=== PATIENT | male | born 1965 | race Caucasian/White ===

== ENCOUNTER 2018-02-07 18:43 | Observation (INO) ==
[2018-02-07] MEDS ORDERED: Isovue-370 500 ML INFUS..BTL IV ONE (22:02)
--- NOTE | 2018-02-07 22:10 | Emergency Department Note ---
Disposition Clinical Impression: Current use of anticoagulant therapy, Pneumothorax, right Left leg DVT Qualifiers: Affected thrombotic vein of extremity: unspecified lower extremity distal vein Chronicity: acute Qualified Code(s): I82.4Z2 - Acute embolism and thrombosis of unspecified deep veins of left distal lower extremity Disposition: Admitted As Inpatient Condition: Good Referrals: NONE,PCP [Primary Care Provider] - ESTELA MCKEON [Other] Forms: ED Satisfaction Letter Time of Disposition: 00:58 General Adult HPI - General Chief complaint: ED Extremity Problem,Nontraumatic Stated complaint: +DVT LLE, +Clot L Lung, sob Time Seen by Provider: 02/07/18 21:31 Source: patient Limitations: no limitations Nursing Notes Reviewed: Yes Vital Signs Reviewed: Yes - History of Present Illness HPI Narrative: Mr. Franklin, 52-year-old male, presents from home for evaluation of unilateral left lower extremity swelling and right-sided rib pain worse with breathing. Patient has a history of unprovoked DVT and PE. He is currently on eliquis 10 mg twice a day. He was discharged from [facility] 27 January with a diagnosis of pleurisy. Symptoms that led him to that admission for a three- month history of hemoptysis, general chest pain with inspiration. Inpatient workup included a markedly elevated d-dimer, right-sided PE, left lower extremity DVT. He was managed on Lovenox inpatient and discharged on liquids. Since discharge, his left lower extremity has been markedly swollen in his right -sided pain with inspiration has persisted. His dyspnea has improved. Patient is becoming increasingly concerned as he has had multiple male on the paternal side of his family, been in her 50s, sudden . Suspected to be blood clot related. ROS: Positive: As above Negative: Fever, chills, nausea, vomiting, palpitations, unusual back pain, diaphoresis, abdominal pain, neck pain, headache, trauma, cancer history. Pain Scale: 6 - Related Data Allergies Allergy/AdvReac Type Severity Reaction Status Date / Time No Known Allergies Allergy Verified 02/07/18 19:04 Past Medical History - Past Medical History Medical history: Reports: DVT, pulmonary embolus Psychiatric history: Reports: no psych history - Social History Smoking Status: Current every day smoker Smokeless Tobacco Status: No Alcohol use: Reports: occasionally Drug use: Reports: none Physical Exam - General Limitations: no limitations General appearance: alert Course Course Narrative: EKG dated 02/07/10 at 21:43 interpreted as sinus rhythm with rate of 85. Normal intervals. Normal axis. Nonspecific ST T changes. Her previous EKG for comparison. Bilateral lower extremity ultrasound Doppler shows extensive DVT in the left lower extremity from the popliteal fossa to the groin. No DVT in the right lower extremity. CTA chest shows no PE for renal injury. There is concern for a tiny collection of gas along the major fissure of the right lung concerning for hydropneumothorax versus infection. Patient remains comfortable relaxing in bed. He is are updated on the above. Their agreement to admission for continued evaluation and management. Will begin empiric antibiotics and begin heparin drip. Cardiothoracic surgery consult; I did not call cardiothoracic surgery as there is no emergent intervention required this evening given the size of this incidental finding, patient's only relevant symptom to be mild right-sided rib pain, and the patient 's stable normal vital signs. I involve the admitting hospitalist, Dr. Kyle, who agrees to accept the patient for continued evaluation and management. 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 Nodular subpleural thickening with architectural distortion along the right lower lung is favored to represent areas of round atelectasis. Comparison with prior imaging would be helpful otherwise recommend three-month follow-up CT. Tiny right pleural effusion with small gas collection along the major fissure -indeterminate for loculated hydropneumothorax versus infectious focus. Diffuse airway inflammation. The Suspect subtle centrilobular ground-glass opacities, upper lung predominant which in a smoker could indicate underlying respiratory bronchiolitis. Subtle emphysema at the lung apices. D/ / Manoj Vazquez / Manoj Vazquez Interpreting Provider: Manoj Vazquez Vital Signs Temperature 98.2 F 02/07/18 19:04 Pulse Rate 106 02/07/18 19:04 Respiratory Rate 20 02/07/18 19:04 Blood Pressure 129/86 02/07/18 19:04 O2 Sat by Pulse Oximetry 99 02/07/18 19:04 Temperature 98.2 F 02/07/18 19:04 Pulse Rate 106 02/07/18 19:04 Respiratory Rate 20 02/07/18 19:04 Blood Pressure 129/86 02/07/18 19:04 O2 Sat by Pulse Oximetry 99 02/07/18 19:04 Oxygen Delivery Oxygen Delivery Room Air Medical Decision Making - Lab Data Result diagrams: 02/07/18 22:05 02/07/18 22:05 Lab Results 02/07/18 02/07/18 02/07/18 Range/Units 22:05 22:05 22:05 WBC 10.1 (4.3-11.1) K/mcL RBC 4.49 (4.19-5.50) M/mcL Hgb 14.7 (12.9-16.9) g/dL Hct 43.7 (37.5-50.1) % MCV 97.3 (83.0-100.0) fL MCH 32.7 (28.0-33.3) pg MCHC 33.6 (31.6-35.5) g/dL RDW 14.3 (11.5-14.5) % Plt Count 362 (140-400) K/mcL MPV 9.0 L (9.4-12.4) fL Immature Gran % 0.3 (0-4) % Seg Neutrophils % 56.3 % Lymphocytes % 29.2 % Monocytes % 6.6 % Eosinophils % 7.1 % Basophils % 0.5 % Neutrophils # 5.7 (1.6-8.9) K/mcL Lymphocytes # 3.0 (0.6-4.6) K/mcL Monocytes # 0.7 (0.0-1.3) K/mcL Eosinophils # 0.7 H (0.0-0.6) K/mcL Basophils # 0.1 (0.0-0.2) K/mcL PT 14.6 H (9.4-12.1) Seconds INR 1.3 Sodium 140 (136-145) mEq/L Potassium 3.7 (3.5-5.1) mEq/L Chloride 104 (98-107) mEq/L Carbon Dioxide 29 (23-29) mEq/L BUN 8 (6-20) mg/dL Creatinine 0.80 (0.70-1.30) mg/dL Est GFR ( Amer) > 60 (> 60) Est GFR (Non-Af Amer) > 60 (> 60) BUN/Creatinine Ratio 10 (6-26) Glucose 101 (70-105) mg/dL Calculated Osmolality 288 (280-300) Calcium 9.5 (8.6-10.3) mg/dL Troponin I < 0.03 (< 0.04) ng/mL
[2018-02-07 22:16] LABS: Basophils # 0.1 K/mcL (0.0-0.2); Basophils % 0.5 %; Eosinophils # 0.7 K/mcL (0.0-0.6); Eosinophils % 7.1 %; Hematocrit 43.7 % (37.5-50.1); Hemoglobin 14.7 g/dL (12.9-16.9); Immature Granulocytes % 0.3 % (0-4); Lymphocytes % 29.2 %; Mean Corpuscular HGB Conc 33.6 g/dL (31.6-35.5); Mean Corpuscular Hemoglobin 32.7 pg (28.0-33.3); Mean Corpuscular Volume 97.3 fL (83.0-100.0); Monocytes # 0.7 K/mcL (0.0-1.3); Monocytes % 6.6 %; Neutrophils # 5.7 K/mcL (1.6-8.9); Platelet Count 362 K/mcL (140-400); Red Blood Count 4.49 M/mcL (4.19-5.50); Red Cell Distribution Width 14.3 % (11.5-14.5); Segmented Neutrophils % 56.3 %
[2018-02-07 22:20] LABS: INR 1.3; Prothrombin Time 14.6 Seconds (9.4-12.1)
[2018-02-07 22:35] LABS: BUN/Creatinine Ratio 10 (6-26); Blood Urea Nitrogen 8 mg/dL (6-20); Calcium 9.5 mg/dL (8.6-10.3); Carbon Dioxide 29 mEq/L (23-29); Chloride 104 mEq/L (98-107); Glucose 101 mg/dL (70-105); Osmolality,Calculated 288 (280-300); Potassium 3.7 mEq/L (3.5-5.1); Sodium 140 mEq/L (136-145); eGFR For African Americans > 60 (> 60); eGFR For Non-African Americans > 60 (> 60)
[2018-02-07 22:36] LABS: Troponin I < 0.03 ng/mL (< 0.04)
[2018-02-08] MEDS ORDERED: *HR* Heparin 5,000 UNIT/ML VIAL IVP ONE (00:41)
[2018-02-08] MEDS ORDERED: *HR* Heparin 5,000 UNIT/ML VIAL IVP PRN ×2 (00:41)
[2018-02-08] MEDS ORDERED: Acetaminophen 325 MG TABLET PO PRN (01:52)
[2018-02-08] MEDS ORDERED: Naloxone 0.4 MG/ML INJ IVP PRN (01:52)
[2018-02-08] MEDS ORDERED: *HR* HYDROcodone/Acet 5/325 mg TABLET PO PRN (01:52)
[2018-02-08] MEDS ORDERED: *HR* OxyCODONE Immed Rel 5 MG TABLET PO PRN (01:52)
[2018-02-08] MEDS: Heparin 25,000 UNIT/500 ML D5W 25,000 UNIT/500 ML BAG IVC SCH (01:56)
--- NOTE | 2018-02-08 01:56 | Internal Med History&Physical ---
Date of Encounter: 02/08/18 Time of Encounter: 01:53 Internal Medicine - H&P: HPI Chief complaint: Right leg swelling Admitted From: Home Plans for Post Hospital Care: Home History of present illness: Mr. Franklin is a 52 year old male with medical history of tobacco abuse who presented to the emergency room with worsening left lower extremity swelling. The patient was seen and examined in the emergency room The patient reports he was recently discharged from another facility 2 days ago after having been there for 3 days with a diagnosis of left lower extremity DVT , pulmonary embolism, and pleuritic chest pain. He was treated with Lovenox therapeutically and discharged home with Eliquis 10 mg twice a day. Switch the patient has been compliant.. The patient reports his left leg swelling continues to get worse and is becoming painful. He is not in any form of distress. He reports the chest pain has significantly improved, he has no fever or chills , he has no cough, he has no hemoptysis. He denies family history of blood clots, however, he reports sudden cardiac in his father. He also reports his dyspnea has improved significantly. He has no abdominal, neurologic, or genitourinary symptoms. He is not tachypneic or hypoxic. Workup in the ER revealed a left popliteal and femoral DVT. CBC chemistry unremarkable, CT angiogram of the chest shows no pulmonary embolism, however, it shows a possible right-sided hydropneumothorax with possible bronchiolitis. The patient's left lower extremities remarkably swollen and bigger than the right, however pulses are preserved, the patient is not in distress. Past Med Surg Social Fam HX - Past Medical History Medical history: DVT, pulmonary embolus Psychiatric history: no psych history - Social History Smoking Status: Current every day smoker Packs per day: 1 Smokeless Tobacco Status: No Alcohol use: occasionally Drug use: none Internal Medicine - H&P: Meds 3 Allergy/AdvReac Type Severity Reaction Status Date / Time No Known Allergies Allergy Verified 02/07/18 19:04 All Systems PM: A 10-system review of systems was performed and is negative for pertinent findings except as documented above in the HPI. - Constitutional Constitutional: no chills, no fever(s), no night sweats - EENT Eyes: no change in vision, no discharge, no pain, no photophobia Ears: no ear discharge, no ear pain, no tinnitus Nose, mouth and throat: no dysphagia, no nasal discharge, no neck pain, no sore throat - Cardiovascular Cardiovascular ROS IM: no chest pain, no diaphoresis, no dyspnea, no lightheadedness, no palpitations, no syncope - Respiratory Respiratory: as per HPI - Gastrointestinal Gastrointestinal: no abdominal pain, no diarrhea, no hematemesis, no hematochezia, no melena, no nausea, no vomiting - Musculoskeletal Musculoskeletal ROS IM: no numbness, no tingling - Integumentary Integumentary IM: no rash, no unusual bruising - Neurological Neurological ROS: no confusion, no convulsions, no focal weakness, no numbness, no tingling, no tremor(s) - Hematologic/Lymphatic Hematologic/Lymphatic: no easy bruising - Constitutional Vitals: Temp Pulse Resp BP Pulse Ox 98.2 F 80 20 112/77 96 02/07/18 19:04 02/08/18 01:08 02/08/18 01:08 02/08/18 01:08 02/08/18 01:08 General appearance: Present: A&O X 3, pleasant, no acute distress - Head Head exam: Present: atraumatic, normocephalic - Eye Eye exam: Present: PERRL, conjuntiva pink, sclera anicteric Pupils: Present: PERRL - Neck Neck exam general surgery: Present: supple, trachea midline. Absent: lymphadenopathy - Respiratory Respiratory exam: Present: CTAB. Absent: accessory muscle use, rales, rhonchi, wheezes - Cardiovascular Cardiovascular exam: Present: RRR, +S1, +S2. Absent: diastolic murmur, gallop, rubs, systolic murmur - GI/Abdominal GI/Abdominal exam: Present: normal bowel sounds, soft, no peritoneal signs. Absent: distended, tenderness - Extremities Exam Additional comments: Left lower extremity swollen up to the thigh, pulses present - Neurological Exam Neurological exam: Present: alert, CN II-XII intact, oriented X3, no focal deficits. Absent: pronater drift, facial droop, speech deficit - Skin Skin exam: Present: dry, intact Internal Med - H&P Results - Labs CBC & Chem 7: 02/07/18 22:05 02/07/18 22:05 - Assessment and plan (1) Tobacco abuse Current Visit: Yes Status: Chronic Assessment and plan: Encouraged cessation. (2) Left leg DVT Current Visit: Yes Status: Acute Assessment and plan: Acute unprovoked left lower extremity deep venous thrombosis. Patient is already on Eliquis, however reports his leg swelling is getting worse. Agree with heparin infusion. Hematology evaluation. Qualifiers: Affected thrombotic vein of extremity: unspecified lower extremity distal vein Chronicity: acute Qualified Code(s): I82.4Z2 - Acute embolism and thrombosis of unspecified deep veins of left distal lower extremity (3) Pneumothorax, right Current Visit: Yes Status: Acute Assessment and plan: Patient's chest symptoms have actually improved his pleuritic chest pain as well as dyspnea has improved. Cardiothoracic has been consulted by the ER- day team to call non-emergent. continue to monitor. (4) Bronchiolitis Current Visit: Yes Status: Acute Assessment and plan: Per imaging Levaquin po - Time Spent With Patient Total time spent is greater than 50% in coordination of care (as documented) at patient's floor/unit and/or counseling patient:
[2018-02-08 05:18] LABS: Hematocrit 40.6 % (37.5-50.1); Hemoglobin 13.5 g/dL (12.9-16.9); Mean Corpuscular HGB Conc 33.3 g/dL (31.6-35.5); Mean Corpuscular Hemoglobin 32.2 pg (28.0-33.3); Mean Corpuscular Volume 96.9 fL (83.0-100.0); Mean Platelet Volume 8.8 fL (9.4-12.4); Platelet Count 314 K/mcL (140-400); Red Blood Count 4.19 M/mcL (4.19-5.50); Red Cell Distribution Width 14.6 % (11.5-14.5)
[2018-02-08 05:25] LABS: INR 1.3; Prothrombin Time 14.4 Seconds (9.4-12.1)
[2018-02-08 05:28] LABS: Activated Partial Thrombo Time 66.2 Seconds (26.0-36.0)
--- NOTE | 2018-02-08 05:34 | Emergency Department Note ---
Disposition Clinical Impression: Current use of anticoagulant therapy, Pneumothorax, right Left leg DVT Qualifiers: Affected thrombotic vein of extremity: unspecified lower extremity distal vein Chronicity: acute Qualified Code(s): I82.4Z2 - Acute embolism and thrombosis of unspecified deep veins of left distal lower extremity Disposition: Admitted As Inpatient Condition: Good General Adult HPI - General Chief complaint: ED Extremity Problem,Nontraumatic Stated complaint: +DVT LLE, +Clot L Lung, sob Time Seen by Provider: 02/07/18 21:31 Source: patient Limitations: no limitations Nursing Notes Reviewed: Yes Vital Signs Reviewed: Yes - History of Present Illness HPI Narrative: I examined this patient and my medical decision-making was reviewed with the Resident Physician. I agree with the documented findings, disposition and treatment plan as described except to the extent set forth below. Findings consistent with dyspnea, DVT which is acute on chronic with failed treatment with the results of. We will start heparin infusion, CT scan shows no evidence of pulmonary embolism but there is a area of gas. This is concerning for possible hydropneumothorax. There is no evidence of tension physiology. Plan to consult cardiothoracic surgery as inpatient. Patient was started on broad- spectrum antibiotics as this could represent infectious causes. Pain Scale: 0 - Related Data Allergies Allergy/AdvReac Type Severity Reaction Status Date / Time No Known Allergies Allergy Verified 02/07/18 19:04 Past Medical History - Past Medical History Medical history: Reports: DVT, pulmonary embolus Psychiatric history: Reports: no psych history - Social History Smoking Status: Current every day smoker Smokeless Tobacco Status: No Alcohol use: Reports: occasionally Drug use: Reports: none Physical Exam - General Limitations: no limitations General appearance: alert Course Vital Signs Temperature 98.2 F 02/07/18 19:04 Pulse Rate 106 02/07/18 19:04 Respiratory Rate 20 02/07/18 19:04 Blood Pressure 129/86 02/07/18 19:04 O2 Sat by Pulse Oximetry 99 02/07/18 19:04 Temperature 98.3 F 02/08/18 04:52 Pulse Rate 70 02/08/18 04:52 Respiratory Rate 14 02/08/18 04:52 Blood Pressure 101/66 02/08/18 04:52 O2 Sat by Pulse Oximetry 98 02/08/18 04:52 Oxygen Delivery Oxygen Delivery Room Air Medical Decision Making - Lab Data Result diagrams: 02/08/18 04:23 02/07/18 22:05 Lab Results 02/07/18 02/07/18 02/07/18 Range/Units 22:05 22:05 22:05 WBC 10.1 (4.3-11.1) K/mcL RBC 4.49 (4.19-5.50) M/mcL Hgb 14.7 (12.9-16.9) g/dL Hct 43.7 (37.5-50.1) % MCV 97.3 (83.0-100.0) fL MCH 32.7 (28.0-33.3) pg MCHC 33.6 (31.6-35.5) g/dL RDW 14.3 (11.5-14.5) % Plt Count 362 (140-400) K/mcL MPV 9.0 L (9.4-12.4) fL Immature Gran % 0.3 (0-4) % Seg Neutrophils % 56.3 % Lymphocytes % 29.2 % Monocytes % 6.6 % Eosinophils % 7.1 % Basophils % 0.5 % Neutrophils # 5.7 (1.6-8.9) K/mcL Lymphocytes # 3.0 (0.6-4.6) K/mcL Monocytes # 0.7 (0.0-1.3) K/mcL Eosinophils # 0.7 H (0.0-0.6) K/mcL Basophils # 0.1 (0.0-0.2) K/mcL PT 14.6 H (9.4-12.1) Seconds INR 1.3 Sodium 140 (136-145) mEq/L Potassium 3.7 (3.5-5.1) mEq/L Chloride 104 (98-107) mEq/L Carbon Dioxide 29 (23-29) mEq/L BUN 8 (6-20) mg/dL Creatinine 0.80 (0.70-1.30) mg/dL Est GFR ( Amer) > 60 (> 60) Est GFR (Non-Af Amer) > 60 (> 60) BUN/Creatinine Ratio 10 (6-26) Glucose 101 (70-105) mg/dL Calculated Osmolality 288 (280-300) Calcium 9.5 (8.6-10.3) mg/dL Troponin I < 0.03 (< 0.04) ng/mL
[2018-02-08] MEDS ORDERED: levoFLOXacin 500 MG TABLET PO SCH (09:00)
--- NOTE | 2018-02-08 10:07 | Internal Med Progress Note ---
Date of Encounter: 02/08/18 Time of Encounter: 09:40 - Assessment and plan (1) Left leg DVT Current Visit: Yes Status: Acute Assessment and plan: Discharged from OSH a couple days ago where he was being treated for LLE DVT, PE , pleuritic chest pain. Was treated therapeutically with Lovenox, discharged home with Eliquis 10 mg BID Saw a PCP for hospital follow-up, he was encouraged by PCP to return to emergency department Left lower extremity DVT seen on venous duplex Continue heparin infusion for now Hematology consult for possible clotting disorder and their recommendations Qualifiers: Affected thrombotic vein of extremity: unspecified lower extremity distal vein Chronicity: acute Qualified Code(s): I82.4Z2 - Acute embolism and thrombosis of unspecified deep veins of left distal lower extremity (2) Pneumothorax, right Current Visit: Yes Status: Ruled-out Assessment and plan: Cardiothoracic surgery consulted by ER CTA chest lungs/pleura findings: negative for pneumothorax, small pleural effusion present cardiothoracic surgery followed with no intervention planned, appreciate consult. (3) Bronchiolitis Current Visit: Yes Status: Acute Assessment and plan: Per CT scan on admission Received one dose of levaquin, however patient is asymptomatic and labs are wnl. Discontinued levaquin today and will continue to monitor closely. (4) Tobacco abuse Current Visit: Yes Status: Chronic Assessment and plan: Tobacco cessation encouraged (5) DVT prophylaxis Current Visit: Yes Status: Acute Assessment and plan: as above for DVT - Time Spent With Patient Total time spent is greater than 50% in coordination of care (as documented) at patient's floor/unit and/or counseling patient: 25 - 35 minutes - Subjective Interval history: Patient seen and examined this morning at bedside. Patient is resting in his bed. He denies any complaints today--denies fever, chills, nausea, vomiting, difficulty urinating, constipation, diarrhea, cardiac chest pain, shortness of breath; LLE numbness, tingling, pain. Admits LLE gets cold occasionally and takes a while to warm back up. - Constitutional Vitals: Temp Pulse Resp BP Pulse Ox 98.4 F 72 14 95/57 96 02/08/18 06:38 02/08/18 06:38 02/08/18 06:38 02/08/18 06:38 02/08/18 08:19 General appearance: Present: A&O X 3, pleasant, no acute distress - Other Additional findings: General: Well-nourished, well-developed, No acute distress HEENT: head normocephalic/atraumatic, EOMI, PERRL, sclera anicteric, moist mucus membranes, Neck: Supple, no lymphadenopathy, FROM Cardio: RRR, no murmurs, +S1/S2 Pulm: CTAB, good airflow bilaterally, no wheezing, rhonchi, rales. Normal respiratory effort. Abdomen: soft, nontender, BS+ Extremities: LLE swelling, no erythema, no cords palpated, not tender on palpation, no calf tenderness, no cyanosis, no clubbing, DP pulses 2+ bilaterally Back: normal appearance on inspection Neuro: AAOx3, no focal deficit, no speech deficit, mentation intact, moves extremities spontaneously MSK: No joint swelling or deformity Skin: clean, dry, intact, no visible rashes Psych: Tense body language, guarded affect. Answers questions appropriately. Cooperative with exam Internal Medicine: Result - Labs CBC & Chem 7: 02/08/18 04:23 02/07/18 22:05 Labs: Short CBC 02/08/18 Range/Units 04:23 WBC 9.5 (4.3-11.1) K/mcL Hgb 13.5 (12.9-16.9) g/dL Hct 40.6 (37.5-50.1) % Plt Count 314 (140-400) K/mcL - ABG Interpretation ABG results: PT/INR, D-dimer PT 14.4 Seconds (9.4-12.1) H 02/08/18 04:23 Consult Discharge Plan - Plan Referrals: ESTELA MCKEON [Other]
--- NOTE | 2018-02-08 16:48 | Cardiothoracic Consult Note ---
Date of Encounter: 02/08/18 Time of Encounter: 16:45 Assessment and Plan (1) Left leg DVT Current Visit: Yes Status: Acute CT scan of the chest reveals no acute pulmonary embolism. He does have evidence of chronic thromboembolism to the right lower lobe of the lung. He has a small pleural effusion and no pneumothorax. No treatment of the lung is recommended at this time. He should continue on anticoagulation. He should be discharged on by mouth anticoagulation for at least 6 months to 1 year. I agree that he should be worked up for clotting disorder as he has had recurrent thrombosis on oral anticoagulants. Qualifiers: Affected thrombotic vein of extremity: unspecified lower extremity distal vein Chronicity: acute Qualified Code(s): I82.4Z2 - Acute embolism and thrombosis of unspecified deep veins of left distal lower extremity - History of Present Illness History of present illness: Mr. Franklin is a 52 year old male The patient is a 52-year-old gentleman who has been experiencing shortness of breath since September. He was diagnosed with pleurisy and treated. He did have some hemoptysis and was diagnosed with acute pulmonary embolism. He was started on by mouth blood thinner and discharge. He was admitted with acute left leg swelling. Past medical history is notable for chronic constipation and psoriasis. Social history. He lives in [place] with his . 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 He does continue to smoke 1 pack of cigarettes per day. Rarely drinks alcohol. Family history. His father of cardiac disease at age 54. Review of systems is otherwise negative. Past Med Surg Social Fam HX - Past Medical History Medical history: DVT, pulmonary embolus Psychiatric history: no psych history - Social History Smoking Status: Current every day smoker Packs per day: 1 Smokeless Tobacco Status: No Alcohol use: occasionally Drug use: none - Family History Father Family Member Ethnicity: Non- Living Status: Age at : 54 Hx Family Cardiac Disorders: Yes (massive heart attack) Mother Family Member Ethnicity: Non- Living Status: Still Living Medications and Allergies Apixaban [Eliquis] 5 mg PO BID 02/08/18 [History] 3 Allergy/AdvReac Type Severity Reaction Status Date / Time No Known Allergies Allergy Verified 02/07/18 19:04 All Systems Review: The remainder of the systems were reviewed and are negative Physical Examination Vital Signs, Last 4 Hours Temp Pulse Resp BP Pulse Ox 02/08/18 14:32 98.1 F 100 14 101/65 95 Pupils are equal, round and reactive to light and accommodation. No oral lesions. Neck is supple. Trachea in the midline. No thyromegaly or carotid bruits. Lungs are clear to percussion and auscultation. Heart is in a regular rate and rhythm. No murmurs, gallops or rubs. Abdomen is benign. No tenderness, rebound or guarding. Extremities. His left lower extremity has 2+ pitting edema throughout. Venous duplex did show clot in the deep left system. Cranial nerves, motor and sensory intact. Results 02/08/18 04:23 02/07/18 22:05 Lab Results, Last 24 hours 02/08/18 02/08/18 02/08/18 04:23 04:23 07:36 WBC 9.5 Hgb 13.5 Hct 40.6 Plt Count 314 INR 1.3 APTT 66.2 H 55.2 H 02/08/18 15:32 WBC Hgb Hct Plt Count INR APTT 83.6 H D Consult Discharge Plan - Plan Referrals: OCESTELA [Other] NONE,PCP [Primary Care Provider] -
[2018-02-09] MEDS: Heparin 25,000 UNIT/500 ML D5W 25,000 UNIT/500 ML BAG IVC SCH (01:54)
[2018-02-09 05:09] LABS: Basophils % 0.6 %; Eosinophils # 0.8 K/mcL (0.0-0.6); Eosinophils % 12.3 %; Hematocrit 40.9 % (37.5-50.1); Hemoglobin 13.6 g/dL (12.9-16.9); Immature Granulocytes % 0.6 % (0-4); Lymphocytes # 2.1 K/mcL (0.6-4.6); Lymphocytes % 31.2 %; Mean Corpuscular HGB Conc 33.3 g/dL (31.6-35.5); Mean Corpuscular Hemoglobin 32.2 pg (28.0-33.3); Mean Corpuscular Volume 96.9 fL (83.0-100.0); Monocytes # 0.5 K/mcL (0.0-1.3); Monocytes % 7.5 %; Neutrophils # 3.2 K/mcL (1.6-8.9); Nucleated Red Blood Cells 0.3 /100 WBC (0); Platelet Count 308 K/mcL (140-400); Red Blood Count 4.22 M/mcL (4.19-5.50); Red Cell Distribution Width 14.1 % (11.5-14.5); Segmented Neutrophils % 47.8 %
[2018-02-09 05:31] LABS: BUN/Creatinine Ratio 12 (6-26); Blood Urea Nitrogen 9 mg/dL (6-20); Calcium 8.7 mg/dL (8.6-10.3); Carbon Dioxide 26 mEq/L (23-29); Chloride 106 mEq/L (98-107); Glucose 92 mg/dL (70-105); Osmolality,Calculated 284 (280-300); Potassium 3.8 mEq/L (3.5-5.1); Sodium 138 mEq/L (136-145); eGFR For African Americans > 60 (> 60); eGFR For Non-African Americans > 60 (> 60)
--- NOTE | 2018-02-09 10:00 | Oncology Inp Consult Note ---
<Elina Tompkins L - Last Filed: 02/09/18 14:30> Date of Encounter: 02/09/18 Time of Encounter: 10:00 Assessment and Plan (1) Left leg DVT Status: Acute Assessment and plan: LLE DVT and right lower/middle lobar and segmental pulmonary artery PE initially diagnosed at [facility] on 01/27/2018. History as detailed in HPI. He has been compliant with his Eliquis therapy since his discharge from [facility] and was instructed to present to ER for continued LLE edema. Patient states his LLE edema or pain has not worsened but instead has been stable. 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 Given the above, it does not appear that he has failed Eliquis therapy. Discussed general course and management of PE/DVT, symptoms may take weeks to months to resolve. He is asymptomatic at this time, denies chest pain, SOB or LLE pain. No hypoxia, HTN, tachycardia. LLE edema still present but improving per patient. Recommend patient be placed back on Eliquis 5 mg PO BID when appropriate per hospitalist team. He will have a follow up arranged with Dr. Regan for continued monitoring. Given the unprovoked nature of his thrombosis, he will need at least 6-12 months of AC , likely around 12 months, Dr. Regan to have further discussions with patient on outpatient basis. Role for thrombophilia testing can be determined on outpatient basis. Please refer to Dr. Regan's attestation below for additional details. Qualifiers: Affected thrombotic vein of extremity: unspecified lower extremity distal vein Chronicity: acute Qualified Code(s): I82.4Z2 - Acute embolism and thrombosis of unspecified deep veins of left distal lower extremity - Data of Consult Patient: new to practice Consult date: 02/09/18 Requesting Physician: Ferdinand Bravo MD Primary Care Provider: PCP NONE Family Provider: ESTELA MCKEON - Consult Narrative Reason for consult: DVT, chronic PE History of present illness: Mr. Franklin is a 52 year old male with past medical history significant for tobacco abuse and PE diagnosed at [facility] ([facility]) on 09/2018. Records reviewed from [facility], CTA reveals PE in the right lower/middle lobar and segmental pulmonary arteries, along with right lateral lower lobe, wedge shaped opacities suggesting pulmonary infarcts and trace loculated air/ pnuemothorax along the right major fissue. He also had a CT Abdomen/Pelvis at that time which revealed a large clot extending from the left iliac veins into the IVC and superficial/deep femoral veins. He was admitted to inpatient at [facility] where he received lovenox injections and was discharged home on Eliquis. He apparently also had an echo during his inpatient stay, I do not have these results available to me at this time. He had a follow up with his PCP following his discharge and was instructed to return back to ER due to his continued LLE edema. Patient states his LLE edema did not become apparent until his hospitalization with PE, and that since his discharge and while on his Eliquis therapy the edema was stable and had not worsened. He had taken approximately 8 days of Eliquis until his follow up and presentation to ER. He presented to [facility] ER as requested per his PCP and was transferred to [facility] ER on 02/07/18. Venous Doppler on 02/07/18 study revealed Lower extremity abnormal deep exam: left distal iliac vein, common femoral vein, superficial femoral vein , and great saphenous vein demonstrates acute thrombosis. 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 Mr. Franklin has no other history of prior DVT/PE. He has no history of malignancy. No reported family history of blood clots, however, he does report family history of sudden, unexplained in his father's side, with his father also passing away at age 54. Prior PE/DVT appears to have been unprovoked in nature, he denies recent surgical intervention, hospitalization, immobility or prolonged travel. Past Med Surg Social Fam HX - Past Medical History Medical history: DVT, pulmonary embolus Psychiatric history: no psych history - Social History Smoking Status: Current every day smoker Packs per day: 1 Smokeless Tobacco Status: No Alcohol use: occasionally Drug use: none - Family History Father Family Member Ethnicity: Non- Living Status: Age at : 54 Hx Family Cardiac Disorders: Yes (massive heart attack) Mother Family Member Ethnicity: Non- Living Status: Still Living Medications and Allergies Apixaban [Eliquis] 5 mg PO BID 02/08/18 [History] 3 Allergy/AdvReac Type Severity Reaction Status Date / Time No Known Allergies Allergy Verified 02/07/18 19:04 Constitutional: Absent: anorexia, chills, fatigue, fever(s), weakness, weight loss Eyes: Absent: change in vision Nose, mouth and throat: Absent: dysphagia Cardiovascular: Absent: chest pain, irregular heart rhythm Respiratory: Absent: cough, dyspnea, hemoptysis Gastrointestinal: Absent: abdominal pain, change in bowel habits, hematemesis, hematochezia, melena, nausea, vomiting Additional comments: denies dysuria or hematuria Musculoskeletal: Absent: muscle weakness Additional comments: LLE edema Integumentary: Absent: wounds Neurological: Absent: focal weakness, frequent falls Hematologic/Lymphatic: Present: as per HPI Oncology - Exam - Constitutional Vitals: Temp Pulse Resp BP Pulse Ox 98.2 F 59 16 104/65 94 02/09/18 07:24 02/09/18 07:24 02/09/18 07:24 02/09/18 07:24 02/09/18 07:24 General appearance: cooperative, no acute distress, no febrile - Head Head exam: Present: atraumatic - ENT ENT exam: Present: mucous membranes moist - Respiratory Respiratory exam: Present: CTAB. Absent: respiratory distress - Cardiovascular Cardiovascular exam: Present: RRR, +S1, +S2 - GI/Abdominal GI/Abdominal exam: Present: normal bowel sounds, soft. Absent: tenderness - Extremities Exam Extremities exam: Absent: calf tenderness Additional comments: LLE non pitting +1-2 edema - Neurological Exam Neurological exam: Present: alert, oriented X3, no focal deficits, strengths equal and symetr throughout - Psychiatric Psychiatric exam: Present: normal affect, normal mood - Skin Skin exam: Present: dry, intact, normal color, warm Oncology - Results Labs: Short CBC 02/09/18 Range/Units 04:25 WBC 6.8 (4.3-11.1) K/mcL Hgb 13.6 (12.9-16.9) g/dL Hct 40.9 (37.5-50.1) % Plt Count 308 (140-400) K/mcL Neutrophils # 3.2 (1.6-8.9) K/mcL BMP 02/09/18 04:25 Sodium 138 Potassium 3.8 Chloride 106 Carbon Dioxide 26 BUN 9 Creatinine 0.78 Glucose 92 Calcium 8.7 Consult Discharge Plan - Plan Referrals: [facility]CE[facility] [Other] Zeyad Chandra MD [Partnered Physician] - <Zeyad Chandra - Last Filed: 02/09/18 16:35> Date of Encounter: 02/09/18 - Data of Consult Requesting Physician: Ferdinand Bravo MD Primary Care Provider: PCP NONE Family Provider: ESTELA OC - Consult Narrative History of present illness: Patient reports that his swelling is better and denies any worsening pain. He will continue on Eliquis 5 mg twice daily upon discharge to Hospital outpatient follow-up with hematology recommended. I examined this patient and my medical decision-making was reviewed with the Advanced Practice Nurse, Elina Tompkins. I agree with the documented findings, disposition and treatment plan as described except to the extent set forth below. Oncology - Exam - Constitutional Vitals: Temp Pulse Resp BP Pulse Ox 98.6 F 68 15 101/67 97 02/09/18 15:20 02/09/18 15:20 02/09/18 15:20 02/09/18 15:20 02/09/18 15:20 Oncology - Results Labs: Short CBC 02/09/18 Range/Units 04:25 WBC 6.8 (4.3-11.1) K/mcL Hgb 13.6 (12.9-16.9) g/dL Hct 40.9 (37.5-50.1) % Plt Count 308 (140-400) K/mcL Neutrophils # 3.2 (1.6-8.9) K/mcL BMP 02/09/18 04:25 Sodium 138 Potassium 3.8 Chloride 106 Carbon Dioxide 26 BUN 9 Creatinine 0.78 Glucose 92 Calcium 8.7
[2018-02-09 15:22] VITALS: BP 101/67
[2018-02-09] MEDS ORDERED: Apixaban 5 MG TABLET PO SCH (16:00)
--- NOTE | 2018-02-09 16:21 | Discharge Summary ---
<Devi Alejandro - Last Filed: 02/09/18 22:03> Orders not resulted at time of discharge: Pending orders 02/09/18 22:00 PTT [Activated Partial Thrombo Time] [COAG] Timed Date of Encounter: 02/09/18 Time of Encounter: 16:19 - Discharge Diagnosis (1) Left leg DVT Priority: Primary Status: Acute Qualifiers: Affected thrombotic vein of extremity: unspecified lower extremity distal vein Chronicity: acute Qualified Code(s): I82.4Z2 - Acute embolism and thrombosis of unspecified deep veins of left distal lower extremity (2) Pneumothorax, right Priority: Secondary Status: Ruled-out (3) Bronchiolitis Priority: Secondary Status: Ruled-out (4) Tobacco abuse Priority: Secondary Status: Chronic (5) DVT prophylaxis Priority: Secondary Status: Acute Hospital course: Mr. Franklin is a 52 year old male who came to the emergency department for worsening LLE swelling 2 days after being discharged from outside hospital where he was admitted for unprovoked PE and LLE DVT. At outside hospital, he was treated with Lovenox and discharged home on Eliquis. On arrival to the emergency department he was afebrile, slightly tachycardic, O2 sat 99% on room air. Initial lab work notable for INR 1.3 and troponin <0.03, otherwise unremarkable. EKG was unremarkable. Lower extremity ultrasound doppler showed acute thrombosis involving left distal iliac, common and superficial femoral, and left great saphenous vein. CTA chest showed no acute PE; evidence of chronic thromboembolic disease in RLL lobar pulmonary artery; tiny right-sided pleural effusion. He was started on a heparin drip and admitted to hospitalist service for continued evaluation and management. During his stay, heme/onc was consulted and they recommended the pt be placed on Eliquis 5mg PO daily. Heme/ onc will see him as outpatient for follow up to determine necessary duration of anticoagulation and determine if there is any role for testing for thrombophilia. His imaging from [facility] was compared to that from the outside hospital and improvement in extent of his DVT was noted. Patient's lab work continued to be unremarkable. His vital signs were stable throughout his stay and he maintained O2 saturations in the upper 90%. Discharge discussed with: patient - Time Spent with Patient Total time spent providing and/or coordinating discharge services: - Discharge Medications Home Medications: Apixaban [Eliquis] 5 mg PO BID 02/08/18 [History] Allergies/Adverse Reactions: 3 Allergy/AdvReac Type Severity Reaction Status Date / Time No Known Allergies Allergy Verified 02/07/18 19:04 Date of admission: 02/08/18 01:03 Primary care physician: PCP NONE Consults: 02/08/18 01:53 Consult to [employer] For [employer] [CONS] Routine Reason for SW Consult: Finacial concerns with medical bills 02/09/18 08:34 Consult to Oncology Hematology [CONS] Routine Consulting Provider: Elina Maria Reason for Consult: unprovoked DVT, PE. Coagulation disorder?? Time Notified: 08:37 Call Completed: Yes Discharging clinician: Devi Alejandor Anticipated date of discharge: 02/09/18 - Constitutional Vitals: Temp Pulse Resp BP Pulse Ox 98.6 F 68 15 101/67 97 02/09/18 15:20 02/09/18 15:20 02/09/18 15:20 02/09/18 15:20 02/09/18 15:20 General appearance: Present: A&O X 3, pleasant, no acute distress - Other Additional findings: General: Well-nourished, well-developed, No acute distress HEENT: head normocephalic/atraumatic, EOMI, PERRL, sclera anicteric, moist mucus membranes, Neck: Supple, no lymphadenopathy, FROM Cardio: RRR, no murmurs, +S1/S2 Pulm: CTAB, good airflow bilaterally, no wheezing, rhonchi, rales. Normal respiratory effort. Abdomen: soft, nontender, BS+ Extremities: Decreased LLE swelling, no erythema, not tender on palpation, no cyanosis, no clubbing, DP pulses 2+ bilaterally Back: normal appearance on inspection Neuro: AAOx3, no focal deficit, no speech deficit, mentation intact, moves extremities spontaneously MSK: No joint swelling or deformity Skin: clean, dry, intact, no visible rashes Psych: Answers questions appropriately. Cooperative with exam - Patient Status Disposition: Home, Self-Care Condition: Good Functional capacity at discharge: independent ambulation Overall status at discharge: patient is progressing back to baseline - Discharge Instructions Instructions: Peripheral Vascular Disorders (DC) Follow Up With: Zeyad Chandra MD [Partnered Physician] - (WEB REQUEST ENTERED. OFFICE WILL CALL WITH APPOINTMENT.) Matthieu Turner, NURSE SUBSTANCE ABUSE [Advanced Practice Nurse] - - Diet and Activity Activity: resume usual activities as tolerated Diet: advance to your usual diet <Pascale Reyes - Last Filed: 02/10/18 20:18> Date of Encounter: 02/10/18 - Discharge Diagnosis (1) Left leg DVT Status: Acute Qualifiers: Affected thrombotic vein of extremity: unspecified lower extremity distal vein Chronicity: acute Qualified Code(s): I82.4Z2 - Acute embolism and thrombosis of unspecified deep veins of left distal lower extremity (2) Pneumothorax, right Status: Ruled-out (3) Tobacco abuse Status: Chronic (4) Bronchiolitis Status: Ruled-out (5) DVT prophylaxis Status: Acute Hospital course: Mr. Franklin is a 52 year old male - Time Spent with Patient Total time spent providing and/or coordinating discharge services: Date of admission: 02/08/18 01:03 Primary care physician: PCP NONE Consults: 02/08/18 01:53 Consult to Dean For Student [employer] [CONS] Routine Reason for SW Consult: Finacial concerns with medical bills 02/09/18 08:34 Consult to Oncology Hematology [CONS] Routine Consulting Provider: Elina Maria Reason for Consult: unprovoked DVT, PE. Coagulation disorder?? Time Notified: 08:37 Call Completed: Yes - Constitutional Vitals: Temp Pulse Resp BP Pulse Ox 98.6 F 68 15 101/67 97 02/09/18 15:20 02/09/18 15:20 02/09/18 15:20 02/09/18 15:20 02/09/18 15:20 - Attending Attestation I performed a history and physical examination of the patient and discussed his/ her management with the resident. I reviewed the residents note and agree with the documented findings and plan of care.
--- NOTE | 2018-02-11 17:00 | Electrocardiograph Report ---
[address] [address] Test Date: 2018-02-07 Pat Name: Leroy Franklin Department: 102 Room: 3A22 Gender: M Registered Diet Technician: [facility] : 1965 Requested By: Chan Nazario Order Number: [id number] Reading MD: Dena Kamara Measurements Intervals [place] Rate: 85 P: 63 [place]: 167 QRS: 60 QRSD: 89 T: 57 QT: 335 QTc: 377 Interpretive Statements SINUS RHYTHM Electronically Signed On 02-11-2018 16:59:19 EDT by Dena Kamara
== END 2018-02-09 18:57 | disposition home or self-care (01) ==
LOC: 3ANU 18:43 → EMEROO 18:43 → 3ANU 02-08 01:31
PROVIDERS: ADMIT Student in an Organized Health Care Education/Training Program; ATTEND Internal Medicine